=== PATIENT | male | born 1950 | race Two or more races ===

== ENCOUNTER 2024-01-26 23:04 | Inpatient (IN) | payer MEDICARE, OTHER ==
[~2024-01-26] VITALS: Ht 167.6 cm; Wt 81.8 kg
[2024-01-26 23:33] LABS: BASOPHILS % (AUTO) 0.2 % (0-1); EOSINOPHILS % (AUTO) 0.1 % (0-6); HEMATOCRIT 33.4 % (42.0-52.0); HEMOGLOBIN 10.6 g/dl (14.0-17.9); LYMPHOCYTES # (AUTO) 0.5 X10'3 (1.1-4.8); LYMPHOCYTES % (AUTO) 6.1 % (21-51); MEAN CORPUSCULAR HEMOGLOBIN 26.8 PG (27.0-31.0); MEAN CORPUSCULAR HGB CONC 31.8 g/dL (33.0-36.5); MEAN CORPUSCULAR VOLUME 84.4 FL (78-98); MEAN PLATELET VOLUME 6.7 FL (7.4-10.4); MONOCYTES # (AUTO) 0.5 X10'3 (0-0.9); MONOCYTES % (AUTO) 6.6 % (2-12); NEUTROPHILS # (AUTO) 6.5 X10'3 (1.8-7.7); PLATELET COUNT 97 X10'3 (140-440); RED BLOOD COUNT 3.95 X10'6 (4.70-6.10); WHITE BLOOD COUNT 7.5 X10'3 (4.5-11.0)
[2024-01-26 23:48] LABS: ALANINE AMINOTRANSFERASE 15 U/L (12-78); ALBUMIN 2.9 G/DL (3.4-5.0); ALBUMIN/GLOBULIN RATIO 0.9 (1.1-1.5); ALKALINE PHOSPHATASE 64 IU/L (46-116); ANION GAP 10 (8-16); ASPARTATE AMINO TRANSFERASE 38 U/L (10-37); BILIRUBIN,TOTAL 0.5 MG/DL (0.1-1.0); BLOOD UREA NITROGEN 51 MG/DL (7-18); BUN/CREATININE RATIO 14.6 (10.0-20.0); CALCIUM 7.7 MG/DL (8.5-10.1); CHLORIDE 108 MMOL/L (99-107); GLUCOSE 100 MG/DL (70-104); POTASSIUM 5.2 MMOL/L (3.5-5.1); SODIUM 140 MMOL/L (135-145); TOTAL CARBON DIOXIDE 22.1 MMOL/L (24-32); eCRCL 17 ML/MIN; eGFR 17 ML/MIN
[2024-01-26 23:56] LABS: PRO BRAIN NATRIURETIC PEPTIDE 1004 PG/ML (0-125)
[2024-01-27] VITALS (12 sets, daily range): BP systolic 90–116; BP diastolic 53–70; PULSE 90–122; RESP 9–20; TEMP 97.7–98.3; O2SAT 95–99
[2024-01-27] MEDS ORDERED: PROB500T10 PO (00:29)
[2024-01-27] MEDS ORDERED: ATOR20TA PO (00:29)
[2024-01-27] MEDS ORDERED: ZOLP12.570 PO (00:29)
[2024-01-27] MEDS ORDERED: LISI20TA28 PO (00:29)
[2024-01-27] MEDS: normal saline 1000ML IV soln IVB ONE (00:44)
[2024-01-27] MEDS: CefTRIAXone/D5W-Rocephin 1gm 50 ML IV ONE (00:45)
[2024-01-27] MEDS: aspirin 325mg tablet PO ONE (00:45)
[2024-01-27] MEDS ORDERED: potassium Cl 40MEQ/1/2NS 520ml 520 ML IV PRN (01:05)
[2024-01-27] MEDS ORDERED: ondansetron/PF 4mg/2ml inj IV PRN (01:05)
[2024-01-27] MEDS ORDERED: magnesium Cl slow-release 64mg tablet PO PRN (01:05)
[2024-01-27] MEDS ORDERED: PERFLUTREN PROTEIN-A MICROSPHR (Optison) 0.22 MG/ML 3ML VIAL IV PRN (01:05)
[2024-01-27] MEDS ORDERED: magnesium sulf-water 2g/50mL 50 ML IV PRN (01:05)
[2024-01-27] MEDS ORDERED: magnesium hydroxide 30ml (MOM) UD suspension PO PRN (01:05)
[2024-01-27] MEDS ORDERED: potassium Cl 20 mEq SR tablet PO PRN ×2 (01:05)
[2024-01-27] MEDS ORDERED: magnesium sulf-water 4G/100mL 100 ML IV PRN (01:05)
[2024-01-27] MEDS ORDERED: acetaminophen 325mg tablet PO PRN (01:05)
[2024-01-27] MEDS ORDERED: mag hydrox/Alum hydrox/simeth 30ml oral suspension PO PRN (01:05)
[2024-01-27 01:42] LABS: APTT 29 SECONDS (22-32); INR 1.1 INR; PROTHROMBIN TIME 11.4 SECONDS (9.0-12.0)
[2024-01-27] MEDS: normal saline 1000ml 1,000 ML IV SCH (02:24)
[2024-01-27 03:44] LABS: ANISOCYTOSIS 1+; PLATELET ESTIMATE DECREASED; TOTAL CELLS COUNTED 100
[2024-01-27 06:41] LABS: BASOPHILS % (AUTO) 0.2 % (0-1); EOSINOPHILS % (AUTO) 0.3 % (0-6); HEMOGLOBIN 10.3 g/dl (14.0-17.9); LYMPHOCYTES # (AUTO) 0.8 X10'3 (1.1-4.8); LYMPHOCYTES % (AUTO) 9.7 % (21-51); MEAN CORPUSCULAR HEMOGLOBIN 27.4 PG (27.0-31.0); MEAN CORPUSCULAR HGB CONC 32.3 g/dL (33.0-36.5); MEAN CORPUSCULAR VOLUME 84.7 FL (78-98); MONOCYTES # (AUTO) 0.6 X10'3 (0-0.9); MONOCYTES % (AUTO) 7.4 % (2-12); NEUTROPHILS # (AUTO) 6.7 X10'3 (1.8-7.7); NEUTROPHILS % (AUTO) 82.4 % (42-75); PLATELET COUNT 93 X10'3 (140-440); RED BLOOD COUNT 3.77 X10'6 (4.70-6.10); RED CELL DISTRIBUTION WIDTH 17.1 % (11.5-14.5); WHITE BLOOD COUNT 8.2 X10'3 (4.5-11.0)
[2024-01-27] MEDS ORDERED: heparin 10,000 units/1 ML INJ IV PRN ×2 (06:50→16:15)
[2024-01-27 06:57] LABS: ALANINE AMINOTRANSFERASE 16 U/L (12-78); ALBUMIN 2.8 G/DL (3.4-5.0); ALBUMIN/GLOBULIN RATIO 0.9 (1.1-1.5); ALKALINE PHOSPHATASE 59 IU/L (46-116); ANION GAP 9 (8-16); ASPARTATE AMINO TRANSFERASE 54 U/L (10-37); BILIRUBIN,TOTAL 0.5 MG/DL (0.1-1.0); BLOOD UREA NITROGEN 51 MG/DL (7-18); BUN/CREATININE RATIO 18.6 (10.0-20.0); CALCIUM 7.8 MG/DL (8.5-10.1); CHLORIDE 108 MMOL/L (99-107); CREATININE 2.74 MG/DL (0.60-1.10); GLUCOSE 91 MG/DL (70-104); MAGNESIUM 1.6 MG/DL (1.5-2.4); POTASSIUM 5.1 MMOL/L (3.5-5.1); SODIUM 139 MMOL/L (135-145); TOTAL CARBON DIOXIDE 21.6 MMOL/L (24-32); TOTAL PROTEIN 5.9 G/DL (6.4-8.2); eCRCL 22 ML/MIN; eGFR 23 ML/MIN
[2024-01-27] MEDS: heparin 10,000 units/1 ML INJ IV ONE (07:36)
[2024-01-27] MEDS: heparin 25,000 UNIT/250ml bag 250 ML IV PRN (07:39)
[2024-01-27] MEDS ORDERED: lisinopril 20mg tablet PO SCH (08:00)
[2024-01-27 08:32] LABS: CHOLESTEROL 88 MG/DL (0-200); HDL CHOLESTEROL 45 MG/DL (35-60); LDL CHOLESTEROL 30 MG/DL (50-100); THYROID STIMULATING HORMONE 0.74 ulU/ml (0.34-4.50); TRIGLYCERIDES 82 MG/DL (20-135)
[2024-01-27] MEDS: docusate sod 100mg capsule PO SCH (09:01)
[2024-01-27] MEDS: methylPREDNISolone sod succ 125mg/2ml vial IV SCH (09:02)
[2024-01-27] MEDS: aspirin 81mg, enteric-coated 1 TAB TABLET.DR PO SCH (09:02)
[2024-01-27] MEDS: atorvastatin 20mg tablet PO SCH (09:02)
[2024-01-27] MEDS: probenecid 500mg tablet PO SCH (09:02)
[2024-01-27] MEDS ORDERED: pneumococcal 23-VAL P-sac vacc 25 mcg/0.5ml vial IMVAC ONE (10:00)
[2024-01-27] MEDS ORDERED: FLU VACC TS2024-25(6MOS UP)/PF 45 MCG/0.5 ML SYRINGE IMVAC ONE (10:00)
[2024-01-27] MEDS: ipratropium/albuterol 3ml nebule NEB SCH (11:00)
[2024-01-27] MEDS: azithromycin 250mg tablet PO ONE (13:43)
[2024-01-27] MEDS: morphine 2 MG/ML inj. syringe IV PRN (16:39)
[2024-01-27] MEDS ORDERED: aminophylline 250mg/10ml inj. IV PRN (18:25)
[2024-01-27] MEDS ORDERED: nitroGLYCERIN 0.4mg SUBLingual tab SL PRN (18:25)
[2024-01-27] MEDS ORDERED: metoprolol tartrate 1mg/ml inj IV PRN (18:25)
[2024-01-27] MEDS: K and/or MAG REPLACEMENT MC SCH (20:00)
[2024-01-27] MEDS: HEPARIN DRIP-CARDIAC**PHARMACIST-TO-DOSE IV ONE (20:43)
[2024-01-27] MEDS: MESSAGE TO NURSING IV ONE ×2 (20:43→20:44)
[2024-01-27] MEDS: zolpidem 5mg tablet PO PRN (20:48)
[2024-01-28] VITALS (20 sets, daily range): BP systolic 106–162; BP diastolic 37–84; PULSE 84–115; RESP 16–19; TEMP 97–98.4; O2SAT 93–100
[2024-01-28] MEDS: MESSAGE TO NURSING IV ONE ×3 (00:34→15:10)
[2024-01-28] MEDS: CefTRIAXone 2gm/D5W 50ml BAG 50 ML IV SCH (01:23)
[2024-01-28] MEDS: azithromycin/NS 500mg/250ml 250 ML IV SCH (01:30)
[2024-01-28 07:34] LABS: ALANINE AMINOTRANSFERASE 24 U/L (12-78); ALBUMIN 2.7 G/DL (3.4-5.0); ALBUMIN/GLOBULIN RATIO 0.8 (1.1-1.5); ALKALINE PHOSPHATASE 61 IU/L (46-116); ANION GAP 8 (8-16); ASPARTATE AMINO TRANSFERASE 46 U/L (10-37); BILIRUBIN,TOTAL 0.3 MG/DL (0.1-1.0); BLOOD UREA NITROGEN 38 MG/DL (7-18); BUN/CREATININE RATIO 24.7 (10.0-20.0); CALCIUM 8.1 MG/DL (8.5-10.1); CHLORIDE 110 MMOL/L (99-107); CHOLESTEROL 95 MG/DL (0-200); CREATININE 1.54 MG/DL (0.60-1.10); GLUCOSE 160 MG/DL (70-104); HDL CHOLESTEROL 47 MG/DL (35-60); LDL CHOLESTEROL 39 MG/DL (50-100); MAGNESIUM 1.9 MG/DL (1.5-2.4); POTASSIUM 4.7 MMOL/L (3.5-5.1); SODIUM 141 MMOL/L (135-145); TRIGLYCERIDES 50 MG/DL (20-135); eCRCL 39 ML/MIN; eGFR 45 ML/MIN
[2024-01-28 07:35] LABS: BASOPHILS % (AUTO) 0 % (0-1); EOSINOPHILS % (AUTO) 0 % (0-6); HEMATOCRIT 29.8 % (42.0-52.0); HEMOGLOBIN 9.7 g/dl (14.0-17.9); LYMPHOCYTES # (AUTO) 0.2 X10'3 (1.1-4.8); LYMPHOCYTES % (AUTO) 1.8 % (21-51); MEAN CORPUSCULAR HEMOGLOBIN 27.3 PG (27.0-31.0); MEAN CORPUSCULAR HGB CONC 32.6 g/dL (33.0-36.5); MEAN CORPUSCULAR VOLUME 83.9 FL (78-98); MEAN PLATELET VOLUME 7.4 FL (7.4-10.4); MONOCYTES # (AUTO) 0.4 X10'3 (0-0.9); MONOCYTES % (AUTO) 4.6 % (2-12); NEUTROPHILS # (AUTO) 8.3 X10'3 (1.8-7.7); NEUTROPHILS % (AUTO) 93.6 % (42-75); PLATELET COUNT 83 X10'3 (140-440); RED BLOOD COUNT 3.55 X10'6 (4.70-6.10); RED CELL DISTRIBUTION WIDTH 17.3 % (11.5-14.5); WHITE BLOOD COUNT 8.9 X10'3 (4.5-11.0)
[2024-01-28 08:59] LABS: ANISOCYTOSIS 1+; PLATELET ESTIMATE DECREASED; TOTAL CELLS COUNTED 100
[2024-01-28 10:16] LABS: % IRON SATURATION 3 % (11-46); IRON 9 UG/DL (53-167); TOTAL IRON BINDING CAPACITY 298 UG/DL (259-388)
[2024-01-28] MEDS: regadenoson 0.4mg/5ml syringe IV PRN (10:56)
[2024-01-28] MEDS: heparin 25,000 UNIT/250ml bag 250 ML IV PRN (13:02)
[2024-01-28] MEDS: normal saline 1000ml 1,000 ML IV ONE ×2 (13:16→15:28)
[2024-01-28] MEDS ORDERED: iohexol 350MG/ML 100ml bottle IV ONE (14:38)
[2024-01-28] MEDS ORDERED: heparin 25,000 UNIT/250ml bag 250 ML IV PRN (14:44)
[2024-01-28 18:40] LABS: ALANINE AMINOTRANSFERASE 27 U/L (12-78); ALBUMIN 2.6 G/DL (3.4-5.0); ALBUMIN/GLOBULIN RATIO 0.8 (1.1-1.5); ALKALINE PHOSPHATASE 63 IU/L (46-116); ANION GAP 6 (8-16); ASPARTATE AMINO TRANSFERASE 46 U/L (10-37); BILIRUBIN,TOTAL 0.3 MG/DL (0.1-1.0); BLOOD UREA NITROGEN 36 MG/DL (7-18); BUN/CREATININE RATIO 27.1 (10.0-20.0); CALCIUM 8.1 MG/DL (8.5-10.1); CHLORIDE 111 MMOL/L (99-107); CREATININE 1.33 MG/DL (0.60-1.10); GLUCOSE 137 MG/DL (70-104); POTASSIUM 4.5 MMOL/L (3.5-5.1); SODIUM 140 MMOL/L (135-145); TOTAL CARBON DIOXIDE 22.7 MMOL/L (24-32); TOTAL PROTEIN 5.9 G/DL (6.4-8.2); eCRCL 45 ML/MIN; eGFR 53 ML/MIN
[2024-01-28 18:47] LABS: FERRITIN 105 NG/ML (26-388)
[2024-01-28] MEDS: ferrous sulfate 325mg tablet PO SCH (20:34)
[2024-01-29 02:00] VITALS: BP 149/83; PULSE 93; RESP 17; TEMP 98; O2SAT 98
[2024-01-29] MEDS: morphine 2 MG/ML inj. syringe IV PRN (02:07)
[2024-01-29 06:00] VITALS: BP 144/93; PULSE 97; RESP 16; TEMP 98; O2SAT 96
[2024-01-29 06:05] LABS: BASOPHILS % (AUTO) 0.2 % (0-1); EOSINOPHILS % (AUTO) 0 % (0-6); HEMATOCRIT 28.9 % (42.0-52.0); HEMOGLOBIN 9.4 g/dl (14.0-17.9); LYMPHOCYTES # (AUTO) 0.1 X10'3 (1.1-4.8); LYMPHOCYTES % (AUTO) 1.2 % (21-51); MEAN CORPUSCULAR HEMOGLOBIN 27.3 PG (27.0-31.0); MEAN CORPUSCULAR HGB CONC 32.7 g/dL (33.0-36.5); MEAN CORPUSCULAR VOLUME 83.6 FL (78-98); MEAN PLATELET VOLUME 7.5 FL (7.4-10.4); MONOCYTES # (AUTO) 0.4 X10'3 (0-0.9); MONOCYTES % (AUTO) 3.8 % (2-12); NEUTROPHILS # (AUTO) 10.6 X10'3 (1.8-7.7); NEUTROPHILS % (AUTO) 94.8 % (42-75); PLATELET COUNT 83 X10'3 (140-440); RED BLOOD COUNT 3.46 X10'6 (4.70-6.10); RED CELL DISTRIBUTION WIDTH 17.5 % (11.5-14.5); WHITE BLOOD COUNT 11.1 X10'3 (4.5-11.0)
[2024-01-29 06:22] LABS: ALANINE AMINOTRANSFERASE 34 U/L (12-78); ALBUMIN 2.5 G/DL (3.4-5.0); ALBUMIN/GLOBULIN RATIO 0.8 (1.1-1.5); ALKALINE PHOSPHATASE 70 IU/L (46-116); ANION GAP 9 (8-16); ASPARTATE AMINO TRANSFERASE 48 U/L (10-37); BILIRUBIN,TOTAL 0.4 MG/DL (0.1-1.0); BLOOD UREA NITROGEN 32 MG/DL (7-18); BUN/CREATININE RATIO 26.2 (10.0-20.0); CALCIUM 8.1 MG/DL (8.5-10.1); CHLORIDE 110 MMOL/L (99-107); CREATININE 1.22 MG/DL (0.60-1.10); GLUCOSE 135 MG/DL (70-104); MAGNESIUM 1.9 MG/DL (1.5-2.4); POTASSIUM 4.6 MMOL/L (3.5-5.1); SODIUM 140 MMOL/L (135-145); TOTAL CARBON DIOXIDE 21.1 MMOL/L (24-32); TOTAL PROTEIN 5.8 G/DL (6.4-8.2); eCRCL 49 ML/MIN; eGFR 58 ML/MIN
[2024-01-29 08:00] VITALS: RESP 16; O2SAT 97
[2024-01-29] MEDS ORDERED: CEFD300C3 PO (11:20)
[2024-01-29] MEDS ORDERED: ALBU8HFA INH (11:20)
== END 2024-01-29 12:52 | disposition home or self-care (01) | DRG 871 ==
LOC: ER 23:06 → ED HOLD 01-27 01:11 → EDBEDREQ 01-27 02:00 → PCU 3S 01-27 03:08
PROVIDERS: ADMIT Internal Medicine Critical Care Medicine; ATTEND Family Medicine
PROC: CB121ZZ Planar Nuclear Medicine Imaging of Lungs and Bronchi using Technetium 99m (Tc-99m) (ICD-10-PCS; 2024-01-27)
PROC: 4A02XM4 Measurement of Cardiac Total Activity, External Approach (ICD-10-PCS; principal; 2024-01-28)
PROC: 3E033HZ Introduction of Radioactive Substance into Peripheral Vein, Percutaneous Approach (ICD-10-PCS; 2024-01-28)
PROC: B3201ZZ Computerized Tomography (CT Scan) of Thoracic Aorta using Low Osmolar Contrast (ICD-10-PCS; 2024-01-28)
PROC: B32S1ZZ Computerized Tomography (CT Scan) of Right Pulmonary Artery using Low Osmolar Contrast (ICD-10-PCS; 2024-01-28)
PROC: B32T1ZZ Computerized Tomography (CT Scan) of Left Pulmonary Artery using Low Osmolar Contrast (ICD-10-PCS; 2024-01-28)
DX: A41.9 Sepsis, unspecified organism (principal); I21.A1 Myocardial infarction type 2; J96.01 Acute respiratory failure with hypoxia; J18.1 Lobar pneumonia, unspecified organism; J44.0 Chronic obstructive pulmonary disease with (acute) lower respiratory infection; N17.9 Acute kidney failure, unspecified; J44.1 Chronic obstructive pulmonary disease with (acute) exacerbation; I82.511 Chronic embolism and thrombosis of right femoral vein; F41.9 Anxiety disorder, unspecified; G47.30 Sleep apnea, unspecified; I12.9 Hypertensive chronic kidney disease with stage 1 through stage 4 chronic kidney disease, or unspecified chronic kidney disease; N18.9 Chronic kidney disease, unspecified; D64.9 Anemia, unspecified; C73 Malignant neoplasm of thyroid gland; R59.0 Localized enlarged lymph nodes
CPT/HCPCS: 36415; 71045; 71250; 71275; 74176; 78452; 78582; 80053; 80061; 82728; 83540; 83550; 83605; 83735; 83880; 84145; 84443; 84484; 85007; 85025; 85379; 85610; 85730; 87040; 87081; 93005; 93017; 93306; 93970; 94640; 94664; 94760; 96365; 96375; 97116; 97161; 97530; 99285; A4615; A6258; A9500; A9539; A9540; G0378; J0456; J0696; J1644; J2270; J2785; J2919; J7030; Q9967